=== PATIENT | female | born 1960 | race Caucasian/White ===

== ENCOUNTER → 2021-07-16 | Emergency (ER) | payer OTHER ==
[~2021-07-16] VITALS: Ht 160 cm; Wt 70.3 kg
[~2021-07-16] MED LIST: SYNTHROID175 MCG PO; ZOVIRAX5 GM TOP
== END | disposition home or self-care (01) ==
LOC: ER 08:48
DX: M79.604 Pain in right leg (principal); R23.8 Other skin changes

== ENCOUNTER 2025-05-29 09:26 | Outpatient (CLI) | payer OTHER | END 2025-05-29 09:29 | disposition home or self-care (01) | LOC: SONOGRAMA 09:26 | PROVIDERS: ATTEND Pathology Anatomic Pathology & Clinical Pathology | DX: E06.3 Autoimmune thyroiditis (principal); E04.1 Nontoxic single thyroid nodule ==